=== PATIENT | male | born 1990 | race African-American/Black ===

== ENCOUNTER 2017-10-10 08:52 | Emergency (ER) | payer OTHER ==
[~2017-10-10] VITALS: Ht 180.3 cm; Wt 126.1 kg
[2017-10-10 09:10] VITALS: BP 136/71; Ht 180.3 cm; Wt 126.1 kg
== END 2017-10-10 10:45 | disposition home or self-care (01) ==
LOC: ED 08:52
DX: J98.01 Acute bronchospasm (principal); Z88.0 Allergy status to penicillin; Z88.1 Allergy status to other antibiotic agents
CPT/HCPCS: J2930; J7613; J7644